=== PATIENT | female | born 1980 | race Caucasian/White ===

== ENCOUNTER 2022-06-01 10:56 | Outpatient (CLI) | payer OTHER ==
[~2022-06-01 10:56] MED LIST: MELOXICAM15 MG PO; METHOCARBAMOL500 MG PO; NABUMETONE750 MG PO
== END 2022-06-01 11:04 | disposition home or self-care (01) ==
LOC: RAD 10:56
PROVIDERS: ATTEND Physical Medicine & Rehabilitation
DX: M79.642 Pain in left hand (principal); S69.82XA Other specified injuries of left wrist, hand and finger(s), initial encounter

== ENCOUNTER 2025-01-01 06:00 | Day surgery (SDC) | payer OTHER ==
[~2025-01-01 06:00] MED LIST changes: +VOLTAREN ARTHRI20 GM TOP
[2025-01-01] MEDS ORDERED: CEFAZOLIN SODIUM 1,000 MG VIAL ONE (06:36)
[2025-01-01] MEDS ORDERED: LIDOCAINE HCL 1%/EPINEPHRINE 20ML VIAL IJ ONE (07:31)
[2025-01-01] MEDS ORDERED: CEPHALEXIN500 MG PO (08:49)
[2025-01-01] MEDS ORDERED: ENALAPRILAT DIHYDRATE 1.25 MG/ML VIAL IV ONE (09:06)
== END 2025-01-01 11:15 | disposition home or self-care (01) ==
LOC: CIR.AMB 06:00
PROVIDERS: ATTEND Otolaryngology Otology & Neurotology
DX: J34.2 Deviated nasal septum (principal); J34.3 Hypertrophy of nasal turbinates; Z88.2 Allergy status to sulfonamides; I10 Essential (primary) hypertension